=== PATIENT | male | born 1955 | race Caucasian/White ===

== ENCOUNTER 2021-07-06 12:06 | Day surgery (SDC) | payer MEDICARE, OTHER ==
[~2021-07-06] VITALS: Ht 165.1 cm; Wt 71.8 kg
[~2021-07-06 12:06] MED LIST: ASPIRIN 81 MG CHEWABLE TABLET PO ONE; DIAZEPAM 5 MG TABLET PO ONE; DiphenhydrAMINE HCL 50 MG CAPSULE PO ONE; SODIUM CHLORIDE 0.9% 1,000 ML IV ONE; SODIUM CHLORIDE 0.9% 1,000 ML ONE
[2021-07-06] MEDS ORDERED: LIDOCAINE/PF 1% 30 ML VIAL ONE (13:14)
[2021-07-06] MEDS ORDERED: IOHEXOL 300 MG/ML 50 ML VIAL ONE (13:14)
[2021-07-06] MEDS ORDERED: SODIUM BICARBONATE 50 MEQ/50 ML VIAL ONE (13:14)
[2021-07-06] MEDS ORDERED: IOHEXOL 300 MG/ML 100 ML VIAL ONE (13:15)
[2021-07-06] MEDS ORDERED: IOHEXOL 300 MG/ML 150 ML VIAL ONE (13:15)
[2021-07-06] MEDS ORDERED: DiphenhydrAMINE HCL 50 MG CAPSULE ONE (13:19)
[2021-07-06] MEDS ORDERED: DIAZEPAM 5 MG TABLET ONE (13:19)
[2021-07-06] MEDS ORDERED: CLOP75TA60 PO (13:34)
[2021-07-06] MEDS ORDERED: ASPI-1444 PO (13:34)
[2021-07-06 13:37] LABS: GLUCOMETER DEV NAME(LOC) SDS.; GLUCOSE,POINT OF CARE 90 MG/DL (70-110)
[2021-07-06] MEDS ORDERED: MIDAZOLAM HCL 2 MG/2 ML VIAL ONE (14:02)
[2021-07-06] MEDS ORDERED: FentaNYL CITRATE PF 100 MCG/2 ML VIAL ONE (14:02)
[2021-07-06 14:03] VITALS: BP 145/71
[2021-07-06] MEDS ORDERED: HEPARIN SODIUM 1000 UNITS/NS 1,000 ML IARTER ONE (14:15)
[2021-07-06] MEDS ORDERED: LIDOCAINE 1% 30 ML/SOD BICARB 8.4% 4 ML SQ ONE (14:15)
[2021-07-06] MEDS ORDERED: FentaNYL CITRATE PF 100 MCG/2 ML VIAL IVP ONE (14:15)
[2021-07-06] MEDS ORDERED: IOHEXOL 300 MG/ML 150 ML VIAL IARTER ONE (14:15)
[2021-07-06] MEDS ORDERED: MIDAZOLAM HCL 2 MG/2 ML VIAL IVP ONE (14:15)
[2021-07-06 14:53] VITALS: BP 166/67
== END 2021-07-06 18:20 | disposition home or self-care (01) ==
LOC: CATHLAB 12:06
PROVIDERS: ATTEND Internal Medicine Interventional Cardiology
DX: I25.10 Atherosclerotic heart disease of native coronary artery without angina pectoris (principal); E78.5 Hyperlipidemia, unspecified; I10 Essential (primary) hypertension; E11.9 Type 2 diabetes mellitus without complications; Z79.899 Other long term (current) drug therapy; Z98.890 Other specified postprocedural states
CPT/HCPCS: 82962; 93458; 99152; C1760; J2250; J3010; J3490 ×2; J7030; Q9967; 93005

== ENCOUNTER 2021-10-12 07:14 | Inpatient (IN) | payer MEDICARE, MEDICAID ==
[~2021-10-12] VITALS: Ht 161.3 cm; Wt 71.3 kg
[~2021-10-12 07:14] MED LIST changes: +ASPI-1444 PO; -ASPIRIN 81 MG CHEWABLE TABLET PO ONE; +CLOP75TA60 PO; -DIAZEPAM 5 MG TABLET PO ONE; -DiphenhydrAMINE HCL 50 MG CAPSULE PO ONE; -SODIUM CHLORIDE 0.9% 1,000 ML IV ONE; -SODIUM CHLORIDE 0.9% 1,000 ML ONE
[2021-10-12] MEDS ORDERED: SODIUM CHLORIDE 0.9% 1,000 ML ONE ×2 (07:48→15:57)
[2021-10-12] MEDS ORDERED: DIAZEPAM 5 MG TABLET ONE (07:48)
[2021-10-12] MEDS ORDERED: DiphenhydrAMINE HCL 50 MG CAPSULE ONE (07:48)
[2021-10-12] MEDS ORDERED: ASPIRIN 81 MG CHEWABLE TABLET ONE ×2 (07:49→12:59)
[2021-10-12] MEDS ORDERED: DIAZEPAM 5 MG TABLET PO ONE (08:00)
[2021-10-12] MEDS ORDERED: DiphenhydrAMINE HCL 50 MG CAPSULE PO ONE (08:00)
[2021-10-12] MEDS ORDERED: SODIUM CHLORIDE 0.9% 1,000 ML IV SCH (08:00)
[2021-10-12] MEDS ORDERED: ASPIRIN 81 MG CHEWABLE TABLET PO ONE (08:00)
[2021-10-12 08:22] LABS: GLUCOMETER DEV NAME(LOC) SDS.; GLUCOSE,POINT OF CARE 99 MG/DL (70-110)
[2021-10-12] MEDS ORDERED: IOHEXOL 300 MG/ML 50 ML VIAL ONE (09:19)
[2021-10-12] MEDS ORDERED: IOHEXOL 300 MG/ML 100 ML VIAL ONE (09:20)
[2021-10-12] MEDS ORDERED: SODIUM BICARBONATE 50 MEQ/50 ML VIAL ONE (09:20)
[2021-10-12] MEDS ORDERED: HEPARIN SODIUM 1000 UNITS/NS 1,000 ML ONE (09:20)
[2021-10-12] MEDS ORDERED: IOHEXOL 300 MG/ML 150 ML VIAL ONE (09:20)
[2021-10-12] MEDS ORDERED: LIDOCAINE/PF 1% 30 ML VIAL ONE (09:20)
[2021-10-12 09:43] VITALS: BP 140/66
[2021-10-12] MEDS ORDERED: FentaNYL CITRATE PF 100 MCG/2 ML VIAL ONE ×2 (09:52→11:28)
[2021-10-12] MEDS ORDERED: MIDAZOLAM HCL 2 MG/2 ML VIAL ONE ×2 (09:52→11:25)
[2021-10-12 10:28] LABS: COVID AG,FIA SOURCE NASOPHARYNGEAL
[2021-10-12] MEDS ORDERED: FentaNYL CITRATE PF 100 MCG/2 ML VIAL IVP ONE ×5 (11:00→12:45)
[2021-10-12] MEDS ORDERED: HEPARIN SODIUM,PORCINE 5,000 UNITS/ML VIAL IVP ONE ×2 (11:00)
[2021-10-12] MEDS ORDERED: MIDAZOLAM HCL 2 MG/2 ML VIAL IVP ONE ×3 (11:00→11:30)
[2021-10-12] MEDS ORDERED: IOHEXOL 300 MG/ML 150 ML VIAL IARTER ONE (11:00)
[2021-10-12] MEDS ORDERED: HEPARIN SODIUM 1000 UNITS/NS 1,000 ML IARTER ONE (11:00)
[2021-10-12] MEDS ORDERED: LIDOCAINE 1% 30 ML/SOD BICARB 8.4% 4 ML SQ ONE (11:00)
[2021-10-12] MEDS ORDERED: TICAGRELOR 90 MG TABLET ONE (12:36)
[2021-10-12] MEDS ORDERED: TICAGRELOR 90 MG TABLET PO ONE (12:45)
[2021-10-12 12:48] VITALS: BP 153/85
[2021-10-12] MEDS ORDERED: ONDANSETRON HCL 4 MG/2 ML VIAL IVP PRN (15:45)
[2021-10-12] MEDS ORDERED: ACETAMINOPHEN 325 MG TABLET PO PRN (15:45)
[2021-10-12] MEDS ORDERED: DEXTROSE 50%-WATER 25 GM/50 ML SYRINGE IVP PRN (15:45)
[2021-10-12] MEDS ORDERED: INSULIN LISPRO 100 UNITS/ML SQ PRN (15:45)
[2021-10-12] MEDS ORDERED: OxyCODONE HCL/ACETAMINOPHEN 5-325 MG TABLET PO PRN (15:45)
[2021-10-12 16:41] LABS: GLUCOMETER DEV NAME(LOC) SDS.; GLUCOSE,POINT OF CARE 123 MG/DL (70-110)
[2021-10-12 17:38] VITALS: BP 150/83
[2021-10-12 18:20] VITALS: BP 140/67
[2021-10-12] MEDS ORDERED: PNEUMOCOCCAL VACCINE POLYVALENT 0.5 ML VIAL [PPSV23] IM. ONE (18:30)
[2021-10-12] MEDS ORDERED: INFLUENZA VIRUS VACCINE QVS 2021-22 (6MO+)/PF 60 MCG/0.5 ML SYRINGE IM. ONE (18:30)
[2021-10-12 20:20] VITALS: BP 121/65
[2021-10-12] MEDS: DOCUSATE SODIUM 100 MG CAPSULE PO SCH (20:48)
[2021-10-12] MEDS: METOPROLOL TARTRATE 25 MG TABLET PO SCH (20:48)
[2021-10-12] MEDS: TICAGRELOR 90 MG TABLET PO SCH (21:00)
[2021-10-12] MEDS ORDERED: ATORVASTATIN CALCIUM 40 MG TABLET PO SCH (21:00)
[2021-10-13] VITALS: BP 117/57
[2021-10-13 02:21] LABS: GLUCOMETER DEV NAME(LOC) 5N.1C; GLUCOSE,POINT OF CARE 179 MG/DL (70-110)
[2021-10-13 05:00] VITALS: BP 142/68
[2021-10-13 06:52] LABS: BASOPHILS % (AUTO) 0.7 % (0.0-2.0); EOSINOPHILS % (AUTO) 9.8 % (1.0-6.0); HEMATOCRIT 33.7 % (41-53); HEMOGLOBIN 11.7 g/dL (13.5-17.5); LYMPHOCYTES # (AUTO) 0.9 K/uL (1.0-4.8); LYMPHOCYTES % (AUTO) 15.3 % (22.0-44.0); MEAN CORPUSCULAR HEMOGLOBIN 32.2 pg (26.0-34.0); MEAN CORPUSCULAR HGB CONC 34.8 G/dL (31.0-37.0); MEAN CORPUSCULAR VOLUME 92 fL (80-100); MONOCYTES # (AUTO) 0.5 K/uL (0.1-1.0); MONOCYTES % (AUTO) 8.9 % (2.0-9.0); NEUTROPHILS % (AUTO) 65.3 % (40.0-70.0); PLATELET COUNT (AUTO) 162 K/uL (150-450); RED BLOOD CELL COUNT(AUTO) 3.65 MIL/uL (4.50-5.90); RED CELL DISTRIBUTION WIDTH 14.1 % (11.5-14.5)
[2021-10-13 07:10] LABS: ALANINE AMINOTRANSFERASE 37 U/L (12-78); ALBUMIN 3.4 g/dL (3.4-5.0); ALKALINE PHOSPHATASE 49 U/L (46-116); ANION GAP 7 mmol/L (8-16); ASPARTATE AMINOTRANSFERASE 23 U/L (15-37); BILIRUBIN,TOTAL 0.4 mg/dL (0.1-1.0); CALCIUM, TOTAL 8.7 mg/dL (8.8-10.5); CARBON DIOXIDE 27 mmol/L (22-29); CHLORIDE 106 mmol/L (98-107); CREATININE 1.04 mg/dL (0.60-1.30); GLOMERULAR FILTR. RATE CALC > 60 mL/min (>60); GLUCOSE,RANDOM 105 mg/dL (70-110); POTASSIUM 3.7 mmol/L (3.5-5.1); SODIUM SERUM 140 mmol/L (136-145); TOTAL PROTEIN, SERUM 6.6 g/dL (6.4-8.2); UREA NITROGEN, BLOOD 25 mg/dL (7-18)
[2021-10-13 07:30] VITALS: BP 155/70
[2021-10-13 07:42] LABS: GLUCOMETER DEV NAME(LOC) 5S.2B; GLUCOSE,POINT OF CARE 137 MG/DL (70-110)
[2021-10-13] MEDS ORDERED: ASPIRIN 81 MG CHEWABLE TABLET PO SCH (09:00)
[2021-10-13] MEDS ORDERED: FAMOTIDINE 20 MG TABLET PO SCH (09:00)
[2021-10-13 09:45] VITALS: BP 144/71
[2021-10-13] MEDS: TICAGRELOR 90 MG TABLET PO SCH (09:49)
[2021-10-13] MEDS: DOCUSATE SODIUM 100 MG CAPSULE PO SCH (09:50)
[2021-10-13] MEDS: METOPROLOL TARTRATE 25 MG TABLET PO SCH (09:51)
[2021-10-13 11:38] VITALS: BP 136/58
[2021-10-13 12:01] LABS: GLUCOMETER DEV NAME(LOC) 5S.2B; GLUCOSE,POINT OF CARE 137 MG/DL (70-110)
[2021-10-13] MEDS ORDERED: ATOR40TA28 PO (12:17)
[2021-10-13] MEDS ORDERED: METO25 PO (12:18)
[2021-10-13] MEDS ORDERED: TICA90TA PO (12:18)
== END 2021-10-13 13:05 | disposition home or self-care (01) | DRG 218 ==
LOC: CATHLAB 07:14 → 5S 18:07
PROVIDERS: ADMIT Internal Medicine; ATTEND Internal Medicine
PROC: 5A0221D Assistance with Cardiac Output using Impeller Pump, Continuous (ICD-10-PCS; principal; 2021-10-12)
PROC: 4A023N7 Measurement of Cardiac Sampling and Pressure, Left Heart, Percutaneous Approach (ICD-10-PCS; 2021-10-12)
PROC: 027034Z Dilation of Coronary Artery, One Artery with Drug-eluting Intraluminal Device, Percutaneous Approach (ICD-10-PCS; 2021-10-12)
PROC: 02HA3RJ Insertion of Short-term External Heart Assist System into Heart, Intraoperative, Percutaneous Approach (ICD-10-PCS; 2021-10-12)
PROC: 02703ZZ Dilation of Coronary Artery, One Artery, Percutaneous Approach (ICD-10-PCS; 2021-10-12)
PROC: B240ZZ3 Ultrasonography of Single Coronary Artery, Intravascular (ICD-10-PCS; 2021-10-12)
PROC: B211YZZ Fluoroscopy of Multiple Coronary Arteries using Other Contrast (ICD-10-PCS; 2021-10-12)
DX: I25.10 Atherosclerotic heart disease of native coronary artery without angina pectoris (principal); E11.9 Type 2 diabetes mellitus without complications; I10 Essential (primary) hypertension; E78.5 Hyperlipidemia, unspecified; E78.00 Pure hypercholesterolemia, unspecified; Z20.822 Contact with and (suspected) exposure to COVID-19
CPT/HCPCS: 33990; 75960; 80053; 82962; 85025; 92920; 92921; 92928; 93005; J1644; J2250; J3010; J3490; J7030; Q9967; 36415-L1; 36415-TC; C9803